=== PATIENT | female | born 1985 | race Caucasian/White ===

== ENCOUNTER → 2019-05-04 | Outpatient (CLI) | payer OTHER ==
--- NOTE | 2019-05-04 16:55 | RAD ---
Examination: WRIST 3V LEFT History: Fell going upstairs. Landed on the wrist. Comparison/Correlation: 10/09/2010 left wrist 3 view x-ray exam Findings: Total 3 images of the left wrist were obtained. Joint spaces are unremarkable. No acute fracture or bony destruction. Soft tissues are normal. Impression: No suspicious process. Consider further imaging if scaphoid injury or other occult process is a persistent concern. Electronically signed by: Lele Britton MD (05/04/2019 4:51 PM) [facility]
== END | disposition home or self-care (01) ==
LOC: PMG 15:16
PROVIDERS: ATTEND Physician Assistant Medical
DX: M25.532 Pain in left wrist (principal); W10.8XXA Fall (on) (from) other stairs and steps, initial encounter; Y93.89 Activity, other specified; Y92.89 Other specified places as the place of occurrence of the external cause; Y99.8 Other external cause status
CPT/HCPCS: 73110

== ENCOUNTER 2019-09-02 09:12 | Emergency (ER) | payer OTHER ==
[~2019-09-02] VITALS: Ht 160 cm; Wt 108.0 kg
[2019-09-02 09:39] VITALS: BP 140/93
--- NOTE | 2019-09-02 09:40 | PHYS DOC ---
Adult General Chief Complaint Chief Complaint: CHEST PAIN HPI HPI 34 year old female presents with chest pain. The patient had lower chest/epigastric pain that radiated up into her left chest last night around 8:30 PM. The pain was sharp and moderate in intensity. She did not want come to the hospital at that time. She was able to fall asleep. When she woke up this morning the pain was gone. She took a couple of Tums prior to going to sleep. She went to a business event this morning and while listening to the speaker, she began have the pain again. She became diaphoretic and pale. This was very concerning to the patient is she's never had symptoms like this before. She has no cardiac history. She was not short of breath. The pain was moderate to severe. It has been coming and going since that time. The patient decided she should be evaluated in the emergency room. Her pain is currently 0. She has a history of cholecystectomy. No history of pancreatitis. She does not frequently drink alcohol. She denies fever or chills. She was feeling completely normal prior to this series of episodes. Review of Systems Review of Systems Constitutional: Denies fever or chills [] Eyes: Denies change in visual acuity, redness, or eye pain [] HENT: Denies nasal congestion or sore throat [] Respiratory: Denies cough or shortness of breath [] Cardiovascular: No additional information not addressed in HPI [] GI: Denies current abdominal pain, nausea, vomiting, bloody stools or diarrhea [] : Denies dysuria or hematuria [] Musculoskeletal: Denies back pain or joint pain [] Integument: Denies rash or skin lesions [] Neurologic: Denies headache, focal weakness or sensory changes [] Endocrine: Denies polyuria or polydipsia [] All other systems were reviewed and found to be within normal limits, except as documented in this note. Physical Exam Physical Exam Constitutional: Well developed, obese, well nourished, no acute distress, non- toxic appearance. [] HENT: Normocephalic, atraumatic, bilateral external ears normal, oropharynx moist, no oral exudates, nose normal. [] Eyes: PERRLA, EOMI, conjunctiva normal, no discharge. [] Neck: Normal range of motion, no tenderness, supple, no stridor. [] Cardiovascular: Heart rate regular rhythm, no murmur [] Lungs & Thorax: Bilateral breath sounds clear to auscultation [] Abdomen: Bowel sounds normal, soft, no tenderness, no masses, no pulsatile masses. [] Skin: Warm, dry, no erythema, no rash. [] Back: No tenderness, no CVA tenderness. [] Extremities: No tenderness, no cyanosis, no clubbing, ROM intact, no edema. [] Neurologic: Alert and oriented X 3, normal motor function, normal sensory function, no focal deficits noted. [] Psychologic: Affect normal, judgement normal, mood concerned. [] EKG EKG Sinus rhythm, rate 81, normal axis, no ST elevations or depressions.[] Radiology/Procedures Radiology/Procedures [] Course & Med Decision Making Course & Med Decision Making Pertinent Labs and Imaging studies reviewed. (See chart for details) The patient's EKG is unremarkable. Her labs are unremarkable. Her troponin and Lipase are normal. Her chest x-ray is unremarkable. . I have given her 20 mg of Pepcid IV. I suspect the patient's symptoms are either related to GERD or possibly stress. She has been under a lot of stress at work lately. I will advise that she could try Pepcid or Zantac as needed and/or take omeprazole for 14 days to see if this helps her eliminate her symptoms. I do not see any life- threatening conditions at this time. She is stable for discharge. Dragon Disclaimer Dragon Disclaimer This electronic medical record was generated, in whole or in part, using a voice recognition dictation system. The HEART Score for CP Pts HEART Score for Chest Pain: HEART Score for Chest Pain Response (Comments) Value History Slighlty/Non-Suspicious 0 ECG Normal 0 Risk Factors 1 or 2 Risk Factors 1 Troponin < Normal Limit 0 Total 1 Risk Factors: Risk Factors: DM, Current or recent (<one month) smoker, HTN, HLP, family history of CAD, obesity. Risk Scores: Score 0 - 3: 2.5% MACE over next 6 weeks - Discharge Home Score 4 - 6: 20.3% MACE over next 6 weeks - Admit for Clinical Observation Score 7 - 10: 72.7% MACE over next 6 weeks - Early Invasive Strategies Departure Departure: Impression: Primary Impression: Chest pain Additional Impression: GERD (gastroesophageal reflux disease) Disposition: 01 HOME, SELF-CARE Condition: STABLE Referrals: ARTHUR GILLESPIE (PCP) Patient Instructions: Chest Pain (Nonspecific), [id number], Gastroesophageal Reflux Disease, Adult, [id number] Problem Qualifiers Primary Impression: Chest pain Chest pain type: other chest pain Qualified Codes: R07.89 - Other chest pain Additional Impression: GERD (gastroesophageal reflux disease) Esophagitis presence: esophagitis presence not specified Qualified Codes: K21.9 - Gastro-esophageal reflux disease without esophagitis TASHIA WERNER DO Sep 02, 2019 09:39
[2019-09-02] MEDS ORDERED: FAMOTIDINE 20 MG/2 ML VIAL IVP ONE (09:45)
[2019-09-02 09:51] LABS: BASO % 0 % (0-3); EOS # 0.2 x10^3/uL (0.0-0.7); EOS % 2 % (0-3); HEMOGLOBIN 12.8 g/dL (12.0-15.5); LYMPH # 1.4 x10^3/uL (1.0-4.8); LYMPH % 19 % (24-48); MEAN CORPUSCULAR HEMOGLOBIN 28 pg (25-35); MEAN CORPUSCULAR HGB CONC 34 g/dL (31-37); MEAN CORPUSCULAR VOLUME 83 fL (79-100); MONO # 0.5 x10^3/uL (0.0-1.1); MONO % 7 % (0-9); NEUT # 5.4 x10^3uL (1.8-7.7); NEUT % 72 % (31-73); PLATELET COUNT 353 x10^3/uL (140-400); RED BLOOD COUNT 4.59 x10^6/uL (3.50-5.40); RED CELL DISTRIBUTION WIDTH 14.3 % (11.5-14.5); WHITE BLOOD COUNT 7.5 x10^3/uL (4.0-11.0)
[2019-09-02 09:59] LABS: CALCIUM 9.2 mg/dL (8.5-10.1); CREATININE 0.8 mg/dL (0.6-1.0); GFR 81.2
[2019-09-02 10:05] LABS: ALBUMIN 3.8 g/dL (3.4-5.0); ALBUMIN/GLOBULIN RATIO 0.9 (1.0-1.7); TOTAL BILIRUBIN 0.3 mg/dL (0.2-1.0); TOTAL PROTEIN 7.9 g/dL (6.4-8.2)
--- NOTE | 2019-09-02 10:15 | RAD ---
EXAM: Chest, 2 views. HISTORY: Chest pain. COMPARISON: None. FINDINGS: 2 views of the chest are obtained. There is no infiltrate, pleural effusion or pneumothorax. The heart is normal in size. IMPRESSION: No acute pulmonary finding. Electronically signed by: Brittany Neely MD (09/02/2019 10:12 AM) [place] [id number]
[2019-09-02] MEDS ORDERED: LIDO:MAALOX 1:1 20 ML SINGLE DOSE. PO ONE (10:30)
--- NOTE | 2019-09-02 16:34 | EKG ---
[address] [address] Test Date: 2019-09-02 Test Time: 09:27:09 Pat Name: ANDRIY CRAWFORD Department: Room: Gender: F [employer]: : 1985 Requested By: TASHIA WERNER Order Number: [id number] Reading MD: Measurements Intervals Marissa Rate: 81 P: 42 GA: 146 QRS: 46 QRSD: 94 T: 63 QT: 362 QTc: 421 Interpretive Statements SINUS RHYTHM NORMAL ECG RI6.01 No previous ECG available for comparison
== END 2019-09-02 10:55 | disposition home or self-care (01) ==
LOC: ER 09:12
DX: K21.9 Gastro-esophageal reflux disease without esophagitis (principal)
CPT/HCPCS: 36415; 71046; 80053; 83690; 84484; 85025; 93005; 96374; 99285; J3490

== ENCOUNTER → 2020-10-24 | Outpatient (CLI) | payer OTHER ==
--- NOTE | 2020-10-24 18:30 | RAD ---
PROCEDURE: XR LT WRIST 3VIEWS STUDY DATE: 10/24/2020 CLINICAL INDICATION / HISTORY: Reason: LEFT WRIST PAIN AND WEAKNESS X 1 WEEK MOSTLY AROUND THUMB / Sp l. Instructions: / History: . TECHNIQUE: Left wrist 3 views. AP, lateral, and oblique views. COMPARISON: None FINDINGS: The radiocarpal and intracarpal relationships are maintained. There is no fracture or dislo cation. The bone density is normal. No soft tissue abnormality is seen. IMPRESSION: No acute osseous abnormality. Electronically signed by: Ivy Borges MD (10/24/2020 6:28 PM) [id number]
== END ==
LOC: DXRAD 16:03
PROVIDERS: ATTEND Physician Assistant Medical
DX: M25.532 Pain in left wrist (principal)
CPT/HCPCS: 73110